=== PATIENT | male | born 1980 ===

== ENCOUNTER 2017-03-10 23:06 | Emergency (ER) | payer OTHER ==
[2017-03-10 23:30] VITALS: PULSE 65; RESP 18; TEMP 97.6; O2SAT 99
--- NOTE | 2017-03-11 01:09 | C.PDOC ---
History Of Present Illness A 36 y/o M c/o intermittent lower back pain for a week. Pain worsens with movement. Denies trauma, urinary complaints, bowel or bladder incontinence, fever, chills, weakness, numbness, or any other complaints. Pt requests medication for acid reflux c/o intermittent epigastric pain, but denies pain at this time. Time Seen by Provider: 03/10/17 23:33 Chief Complaint (Nursing): Back Pain History Per: Patient History/Exam Limitations: no limitations Onset/Duration Of Symptoms: Days Current Symptoms Are (Timing): Still Present Quality Of Discomfort: "Pain" Severity: Mild Exacerbating Factor(s): Movement Recent travel outside of the [place]: No Additional History Per: Patient Past Medical History Reviewed: Historical Data, Nursing Documentation, Vital Signs Vital Signs: Last Vital Signs Temp 97.6 F 03/11/17 01:17 Pulse 65 03/11/17 01:17 Resp 18 03/11/17 01:17 BP 131/72 03/11/17 01:17 Pulse Ox 99 03/11/17 03:43 - Medical History PMH: Cardia Arrhythmia (palpitations) Family History: States: Diabetes - Social History Hx Tobacco Use: Yes Hx Alcohol Use: Yes Hx Substance Use: No - Immunization History Hx Tetanus Toxoid Vaccination: No Hx Influenza Vaccination: No Hx Pneumococcal Vaccination: No Review Of Systems Except As Marked, All Systems Reviewed And Found Negative. Constitutional: Negative for: Fever, Chills, Other (Trauma) Gastrointestinal: Negative for: Constipation Genitourinary: Negative for: Dysuria, Incontinence (Bowel nor bladder), Hematuria Musculoskeletal: Positive for: Back Pain (Lower) Neurological: Negative for: Weakness, Numbness Physical Exam - Physical Exam Appears: Non-toxic, No Acute Distress Skin: Warm, Dry Head: Atraumatic, Normacephalic Eye(s): bilateral: Normal Inspection Gastrointestinal/Abdominal: Soft, No Tenderness Back: Paraspinal Tenderness (Paralumbar) Extremity: Normal ROM, No Tenderness, Capillary Refill (<2secs), No Swelling Neurological/Psych: Oriented x3, Normal Speech, Normal Motor, Normal Sensation, Other (No focal deficit) ED Course And Treatment O2 Sat by Pulse Oximetry: 99 (RA) Pulse Ox Interpretation: Normal Progress Note: Impression: A 36 y/o M c/o intermittent lower back pain for a week. Plans: Reassess. Pt is comfortable at this time and is in no acute distress. Pt was instructed to follow up with the clinic for further evaluation and if symptoms gets worse to return to the ER. Disposition - Disposition Referrals: [facility] [Outside] Disposition: HOME/ ROUTINE Disposition Time: 01:05 Condition: STABLE Additional Instructions: Please follow up with clinic Take meds as prescribed Return to ER if worse Prescriptions: Aluminum Hydroxide/Magnesium H [Maalox 30 ml] 30 ml PO TID #100 ml Cyclobenzaprine [Cyclobenzaprine HCl] 10 mg PO HS #10 tab Famotidine [Pepcid] 20 mg PO DAILY #20 tab traMADol [Ultram] 50 mg PO TID #14 tab Instructions: Gastritis (ED), Back Pain (ED) Print Language: PASHTO - Clinical Impression Clinical Impression: Low back pain, GERD (gastroesophageal reflux disease) - Scribe Statement The provider has reviewed the documentation as recorded by the Scribe Nathan reed All medical record entries made by the Scribe were at my direction and personally dictated by me. I have reviewed the chart and agree that the record accurately reflects my personal performance of the history, physical exam, medical decision making, and the department course for this patient. I have also personally directed, reviewed, and agree with the discharge instructions and disposition.
[2017-03-11 01:18] VITALS: BP 131/72
== END 2017-03-11 01:27 | disposition home or self-care (01) ==
LOC: C.ER 23:06 → SUPCPDRO 23:06 → C.ER 03-11 01:27
DX: M54.5 Low back pain (principal); K21.9 Gastro-esophageal reflux disease without esophagitis